=== PATIENT | female | born 1955 | race Caucasian/White ===

== ENCOUNTER 2020-05-18 16:44 | Outpatient (REF) | payer OTHER, SELFPAY ==
--- NOTE | 2020-05-18 16:15 | PAPFT_PTH ---
PATIENT: Melissa Greene LOC: [facility]#:[id number] AGE/SX: 64/F ROOM: RE05/18/[address]: Marjorie Do : 1955 BED: DIS: 05/18/2020 SPEC #: [id number] RECD: 05/21/20 13:09 STATUS: KWAN REAna #: [id number] ERWIN: 05/18/20 16:[address]: Marjorie Do DEPT: [facility] Cytology RECD BY: Vidhya So ENTERED: 05/21/20 13:09 SP TYPE: PAPFT OTHR DR: Holly Alvarenga Tissues: 1 - CX/ENDOCX FOR PAP SMEARS Procedures: PAP THIN PREP/[facility] Screening HPV DNA PROBE Comments: [id number]
== END 2020-05-18 17:04 ==
LOC: NCHCN 16:44
PROVIDERS: PCP Nurse Practitioner Adult Health; Visit Provider Family Medicine
DX: Z00.00 Encounter for general adult medical examination without abnormal findings (principal); Z12.4 Encounter for screening for malignant neoplasm of cervix; Z11.51 Encounter for screening for human papillomavirus (HPV); Z01.419 Encounter for gynecological examination (general) (routine) without abnormal findings
CPT/HCPCS: 88142; 87624

== ENCOUNTER 2021-10-14 15:41 | Outpatient (REF) | payer OTHER, SELFPAY ==
[2021-10-14 20:56] LABS: Abs Immature Grans 0.02 10^3/uL (0.0-0.06); Absolute Basophil Count 0.03 10^3/uL (0.0-0.2); Absolute Eosinophil Count 0.16 10^3/uL (0.0-0.7); Absolute Lymphocyte Count 1.66 10^3/uL (1.2-3.4); Absolute Monocyte Count 0.62 10^3/uL (0.1-0.8); Absolute Neutrophil Count 4.02 10^3/uL (1.2-6.7); Basophils % 0.5; Eosinophils % 2.5; HCT 44.6 % (36.0-46.0); HGB 13.7 g/dL (11.2-15.7); Immature Grans % 0.3; Lymphocytes % 25.5; MCH 28.1 pg (27.0-33.0); MCHC 30.7 % (32.0-36.0); MCV 91.4 fL (80-95); MPV 10.9 fL (8.0-11.0); Monocytes % 9.5; Neutrophils % 61.7; Nucleated RBC 0 %; Platelet Count 299 10^3/uL (130-400); RBC 4.88 10^6/uL (3.93-5.22); RDW 13.2 % (11.7-14.6); RDW-SD 44.8 fL; WBC 6.51 10^3/uL (4.4-10.8)
[2021-10-14 21:34] LABS: ALT 37 U/L (14-59); AST 20 U/L (15-37); Alkaline Phosphatase 89 U/L (46-116); Anion Gap 12.3 mmol/L (3-11); BUN 14 mg/dL (7-18); Bilirubin, Total 0.4 mg/dL (0.2-1.0); CO2 24.7 mmol/L (21.0-32.0); CREATININE 0.7 mg/dL (0.55-1.02); Chloride 106 mmol/L (98-107); Glucose 88 mg/dL (74-106); Sodium 143 mmol/L (136-145); Total Protein 7.3 g/dL (6.4-8.2)
[2021-10-16 10:00] LABS: Hepatitis C Ab w Rflx HCV PCR Negative (Negative)
[2021-10-16 10:19] LABS: HIV-1/2 Ag & Ab Screen Negative (Negative)
== END 2021-10-14 15:42 | disposition home or self-care (01) ==
LOC: NCHCN 15:41
PROVIDERS: PCP Nurse Practitioner Adult Health; Visit Provider Family Medicine
DX: R55 Syncope and collapse (principal); Z11.4 Encounter for screening for human immunodeficiency virus [HIV]; Z11.59 Encounter for screening for other viral diseases
CPT/HCPCS: 80053; 86803; 87389; 85025

== ENCOUNTER 2022-11-17 10:07 | Outpatient (REF) | payer MEDICARE, SELFPAY ==
[2022-11-17 15:30] LABS: ALT 24 U/L (14-59); AST 16 U/L (15-37); Albumin 3.7 g/dL (3.4-5.0); Alkaline Phosphatase 88 U/L (46-116); Anion Gap 7.3 mmol/L (3-11); BUN 16 mg/dL (7-18); Bilirubin, Total 0.4 mg/dL (0.2-1.0); CO2 27.7 mmol/L (21.0-32.0); CREATININE 0.6 mg/dL (0.55-1.02); Calcium 8.9 mg/dL (8.5-10.1); Calculated LDL 92 mg/dL (<100); Chloride 105 mmol/L (98-107); Cholesterol 162 mg/dL (<200); Estimated GFR 99.55 (mL/min/1.73m2); Glucose 99 mg/dL (74-106); HDL Cholesterol 51 mg/dL (40-60); Sodium 140 mmol/L (136-145); Total Protein 6.8 g/dL (6.4-8.2); Triglyceride 99 mg/dL (<150)
== END 2022-11-17 10:08 | disposition home or self-care (01) ==
LOC: NCHCN 10:07
PROVIDERS: PCP Nurse Practitioner Adult Health; Visit Provider Family Medicine
DX: R55 Syncope and collapse (principal); Z13.6 Encounter for screening for cardiovascular disorders; Z00.00 Encounter for general adult medical examination without abnormal findings
CPT/HCPCS: 80053; 80061

== ENCOUNTER → 2023-06-24 03:04 | Outpatient (CLI) | payer MEDICARE, SELFPAY ==
--- NOTE | 2023-06-24 | DI.CT_ITS ---
Exam(s) CT ABDOMEN PELVIS W EXAM: CT ABDOMEN PELVIS W CLINICAL HISTORY: ABD DISCOMFORT, R10.9. TECHNIQUE: Imaging Protocol: Axial computed tomography images with coronal and sagittal reformatted images were created and reviewed CONTRAST MATERIAL: Intravenous: Omnipaque 350 Contrast volume:100 ml Oral: yes / COMPARISON: No exams were available for comparison FINDINGS: ABDOMEN and PELVIS: Lung Bases: Minimal linear scarring or atelectasis. Liver: Normal density. No measurable mass. Gallbladder and biliary tract: No radiodense calculus or dilation. Pancreas: Normal density. No abnormal calcifications or inflammatory process. No evidence of mass. Spleen: Normal. Kidneys: Normal size, contour and axis. No radiodense stones. No obstructive uropathy. No suspicious masses seen. Adrenal glands: No masses seen. Vasculature: Abdominal aorta non-dilated. Soft tissues: Unremarkable. Bladder: No gross wall thickening. No calculi.No focal mass. Bowel: Prominent sigmoid diverticulosis. No evidence of diverticulitis. Moderate quantity of stool. No obstruction. No bowel wall thickening. Appendix normal. Peritoneal cavity: No ascites. No focal collection or mesenteric inflammatory response. Bones: Unremarkable for age. Reproductive organs: Status post hysterectomy. Lymph nodes: Unremarkable. IMPRESSION:: Unremarkable CT scan of the abdomen and pelvis. RADIATION DOSE DELIVERED: Total DLP DATA REPOSITORY: All CT scans at this facility are submitted to the National Radiology Data Registry (NRDR) Dose Index Registry (DIR) with the [employer] ([employer]). RADIATION OPTIMIZATION: All CT scans at this facility use at least one of these dose optimization te chniques: automated exposure control; mA and/or kV adjustment per patient size (includes targeted exa ms where dose is matched to clinical indication); or iterative reconstruction.
[2023-06-24] MEDS: Barium Sulfate 2% W/V-Berry Smoothie 450 ML BTL PO (08:28)
[2023-06-24 08:40] LABS: CREATININE 0.4 mg/dL (0.55-1.02); Estimated GFR 109.09 (mL/min/1.73m2)
[2023-06-24] MEDS: Omnipaque 350 MG/ML 100 ML BTL IJ (09:52)
[2023-06-24] MEDS: Normal Saline - Diluent 50 ML VIAL IJ (09:54)
== END ==
PROVIDERS: PCP Nurse Practitioner Adult Health; Visit Provider Family Medicine
DX: R10.9 Unspecified abdominal pain (principal)
CPT/HCPCS: 74177; 82565; J3490